=== PATIENT | male | born 1950 | race Caucasian/White ===

== ENCOUNTER 2017-08-22 09:04 | Emergency (ER) | payer MEDICARE ==
[~2017-08-22] VITALS: Ht 182.9 cm; Wt 93.0 kg
[2017-08-22] MEDS ORDERED: OMEPRAZOLE20 MG PO (09:20)
[2017-08-22] MEDS ORDERED: CLEOCIN HCL300 MG PO (09:36)
== END 2017-08-22 10:20 | disposition home or self-care (01) ==
LOC: ED 09:04
DX: K04.7 Periapical abscess without sinus (principal); K21.9 Gastro-esophageal reflux disease without esophagitis; Z79.899 Other long term (current) drug therapy; Z23 Encounter for immunization
CPT/HCPCS: 90471; 90715; 99283